=== PATIENT | male | born 1990 | race Caucasian/White ===

== ENCOUNTER 2018-08-22 20:00 | Emergency (ER) | payer SELFPAY ==
[2018-08-22] MEDS ORDERED: IBUPROFEN 600 MG TAB PO ONE (21:11)
[2018-08-22] MEDS ORDERED: HYDROCODONE/APAP 5/325 TAB PO ONE ×2 (21:11→23:04)
[2018-08-22] MEDS ORDERED: HYDROCOD/APAP 5/325 PREPACK#6 BTL TAKEHOME ONE (23:14)
--- NOTE | 2018-08-22 23:14 | EDPHY ---
H & P Stated Complaint: R ankle pain Time Seen by Provider: 08/22/18 20:00 HPI/ROS: Chief complaint: Right ankle injury History of present illness: This is a 28-year-old male who is brought to the emergency department by EMS for right ankle injury. Patient is homeless, walking to the correction when he misstepped and felt multiple pops in crutches in his foot. Since then he has had pain and swelling. He is not able to ambulate well. He denies other direct trauma. He denies open wounds. Denies abnormal coolness or paresthesias. No report of trauma to other parts of the body. - Personal History Current Tetanus Diphtheria and Acellular Pertussis (TDAP): Yes - Medical/Surgical History Hx Asthma: No Hx Chronic Respiratory Disease: No Hx Diabetes: No Hx Cardiac Disease: No Hx Renal Disease: No Hx Cirrhosis: No Hx Alcoholism: No Hx HIV/AIDS: No Hx Splenectomy or Spleen Trauma: No Other PMH: denies - Social History Smoking Status: Never smoked - Physical Exam Exam: General: Alert, nontoxic. Skin: No open wounds to the right lower extremity. Musculoskeletal: Diffuse edema to the right ankle. It is diffusely tender. He has pain trying to move it. He can move the right toes. The lower leg and knee are nontender. Vascular: DP and PT pulses 2+. Neurologic: Sensation intact in the right leg. Constitutional: Initial Vital Signs Temperature (C) 36.6 C 08/22/18 20:21 Heart Rate 74 08/22/18 20:21 Respiratory Rate 16 08/22/18 20:21 Blood Pressure 134/76 H 08/22/18 20:21 O2 Sat (%) 96 08/22/18 20:21 O2 Delivery Mode Room Air Allergies/Adverse Reactions: No Known Allergies Allergy (Unverified 08/22/18 20:21) Home Medications: Medication Instructions Recorded Hydrocodone/APAP 5/325 [[place] 1 tab PO Q6H #6 tab 08/22/18 5/325 (*)] Medical Decision Making - Diagnostics Imaging Results: Imaging Impressions Ankle X-Ray 08/22/18 20:04 Impression: Mildly displaced posterior malleolar fracture of the right ankle. Imaging: I viewed and interpreted images myself ED Course/Re-evaluation: Patient presents to the emergency department with EMS for a right ankle injury. His foot is neurovascularly intact. X-ray confirms a posterior malleolar fracture. Dr. Alva of orthopedics was consulted. He has seen the patient in the emergency room. He recommends a walking boot and crutches and patient can follow up in clinic. Patient is discharged. Referral information is provided. Return precautions discussed. Differential Diagnosis: Included but not limited to contusion, sprain or strain, Achilles tendon rupture , fracture, dislocation - Data Points Medications Given: Discontinued Medications Hydrocodone Bitart/Acetaminophen ([place] 5/325) 1 tab PO EDNOW ONE Stop: 08/22/18 21:12 Last Admin: 08/22/18 21:21 Dose: 1 tab Hydrocodone Bitart/Acetaminophen ([place] 5/325) 1 tab PO EDNOW ONE Stop: 08/22/18 23:05 Last Admin: 08/22/18 23:08 Dose: 1 tab Hydrocodone Bitart/Acetaminophen ([place] 5/325mg Prepack#6) 1 btl TAKEHOME EDNOW ONE Stop: 08/22/18 23:15 Last Admin: 08/22/18 23:27 Dose: 1 btl Ibuprofen (Motrin) 600 mg PO EDNOW ONE Stop: 08/22/18 21:12 Last Admin: 08/22/18 21:21 Dose: 600 mg Departure - Departure Disposition: Home, Routine, Self-Care Clinical Impression: Ankle fracture Qualifiers: Encounter type: initial encounter Fracture type: closed Laterality: right Qualified Code(s): S82.891A - Other fracture of right lower leg, initial encounter for closed fracture Condition: Good Instructions: Hydrocodone/Acetaminophen (By mouth), Ankle Fracture (ED) Additional Instructions: Follow-up with orthopedics this week for recheck In regards to pain control see the following: Use ibuprofen [600] mg [3] times a day for the next 2-3 days for pain In addition You have been prescribed [[place]] for pain. [[place]] contains Tylenol, do not take extra Tylenol/acetaminophen/Apap with it. It is sedating. If symptoms worsen or new symptoms develop return to the emergency room for recheck Referrals: Taran Alva MD [Medical Doctor] - 08/23/18 Prescriptions: Hydrocodone/APAP 5/325 [[place] 5/325 (*)] 1 tab PO Q6H #6 tab
[2018-08-22 23:46] VITALS: BP 143/84
--- NOTE | 2018-08-23 01:45 | GCON ---
I was asked to see the patient via the emergency room. HISTORY OF PRESENT ILLNESS: The patient sustained a fall earlier this evening, resulting in ankle fr acture. PHYSICAL EXAM: He has no gross sensorimotor or vascular deficits. Range of motion is deferred secon davin to pain. However, he does not have any gross deficits at this time. Squeeze test is negative. I reviewed x-rays of the right ankle, which demonstrate a posterior malleolus fracture. It appears to encompass about 15% of the articular surface. There is no evidence of additional fracture or disl ocation of note. The medial and lateral malleoli appear to be grossly intact. IMPRESSION: Right ankle fracture, closed. ASSESSMENT AND PLAN: We will treat the patient in a CAM boot. It is preferable that he is nonweight bearing. However, this is more than likely a stable ankle fracture. Patient has some social issues, and he will probably be walking on this. I think it is safe even knowing that discharging the patie nt with some crutches. I will see him on Thursday in my office, and we will go over further instruc tions at that time. /[id number]/MODL
== END 2018-08-22 23:44 | disposition home or self-care (01) ==
DX: S82.891A Other fracture of right lower leg, initial encounter for closed fracture (principal); X50.9XXA Other and unspecified overexertion or strenuous movements or postures, initial encounter; Y93.01 Activity, walking, marching and hiking; Y92.9 Unspecified place or not applicable; Z59.0 Homelessness
CPT/HCPCS: L4386

== ENCOUNTER 2018-08-25 11:07 | Day surgery (SDC) | payer MEDICAID ==
[2018-08-25] MEDS ORDERED: LR 1,000 ML IV ONE (11:21)
[2018-08-25] MEDS ORDERED: LIDOCAINE 1% 2 ML INJ ID PRN (11:43)
[2018-08-25] MEDS ORDERED: BUPIVACAINE 0.5% 30 ML SDV ONE (12:23)
[2018-08-25] MEDS ORDERED: ceFAZolin 2 GM/DEXTROSE 100 ML IV ONE (13:23)
--- NOTE | 2018-08-25 13:23 | PDGENHP ---
History and Physical History and Physical: CC: R Ankle HPI: 28y/o twist ankle ~ 1 wk ago developed ankle pain SH 1ppd Meds - none NKDA PE Head - normocephalic Neck - supple Chest - CTA Heart - RRR Ext - R ankle swollen tender. Distal NVI A: R post mal fx,syndesmotic disruption P: ORIF R post mal, ORIF syndesmosis
--- NOTE | 2018-08-25 13:25 | POSTOPPROG ---
Post Op Note Date of Operation: 08/25/18 Surgeon: Angel Ruff Anesthesia: GET(General Endotracheal) Pre-op Diagnosis: R post mal fx, syndesmotic disruption, deltoid ligament tear Post-op Diagnosis: same Procedure: ORIF post mal, syndesmosis, deltoid repair Inf/Abcess present in the surg proc area at time of surgery?: No EBL: Minimal
[2018-08-25] MEDS ORDERED: MIDAZOLAM 2 MG/2 ML VIAL IVP ONE (13:30)
--- NOTE | 2018-08-25 13:30 | PDANEPAE ---
ANE Past Medical History - Cardiovascular History Hx Hypertension: No Hx Arrhythmias: No Hx Chest Pain: No Hx Coronary Artery / Peripheral Vascular Disease: No Hx CHF / Valvular Disease: No Hx Palpitations: No - Pulmonary History Hx COPD: No Hx Asthma/Reactive Airway Disease: No Hx Recent Upper Respiratory Infection: No Hx Oxygen in Use at Home: No Hx Sleep Apnea: No Sleep Apnea Screening Result - Last Documented: Negative - Neurologic History Hx Cerebrovascular Accident: No Hx Seizures: No Hx Dementia: No - Endocrine History Hx Diabetes: No - Renal History Hx Renal Disorders: No - Liver History Hx Hepatic Disorders: No - Neurological & Psychiatric Hx Hx Neurological and Psychiatric Disorders: No - Cancer History Hx Cancer: No - Congenital Disorder History Hx Congenital Disorders: No - GI History Hx Gastrointestinal Disorders: No - Other Health History Other Health History: missing teeth - Chronic Pain History Chronic Pain: No - Surgical History Prior Surgeries: denies ANE Review of Systems Review of Systems: - Exercise capacity METS (RN): 5 METS ANE Patient History - Allergies Allergies/Adverse Reactions: No Known Allergies Allergy (Verified 08/25/18 11:53) - NPO status NPO Since - Liquids (Date): 08/24/18 NPO Since - Liquids (Time): 23:59 NPO Since - Solids (Date): 08/25/18 NPO Since - Solids (Time): 06:00 - Smoking Hx Smoking Status: Heavy smoker - Family Anes Hx Family Hx Anesthesia Complications: mom has lots of nausea ANE Labs/Vital Signs - Vital Signs Blood Pressure: 136/89 Heart Rate: 91 Respiratory Rate: 16 O2 Sat (%): 96 Height: 185.42 cm Weight: 72.575 kg ANE Physical Exam - Airway Neck exam: FROM Mallampati Score: Class 2 Mouth exam: normal dental/mouth exam - Pulmonary Pulmonary: no respiratory distress - Cardiovascular Cardiovascular: regular rate and rhythym - ASA Status ASA Status: II ANE Anesthesia Plan Anesthesia Plan: GA w LMA
[2018-08-25] MEDS ORDERED: METOCLOPRAMIDE 10 MG/2 ML VIAL ONE (13:35)
[2018-08-25] MEDS ORDERED: PROPOFOL 200 MG/20 ML VIAL ONE (13:35)
[2018-08-25] MEDS ORDERED: fentaNYL 250 MCG/5 ML INJ ONE (13:35)
[2018-08-25] MEDS ORDERED: DEXAMETHASONE 4 MG/ML VIAL ONE ×2 (13:35)
[2018-08-25] MEDS ORDERED: KETOROLAC 30 MG/1 ML SDV ONE (13:36)
[2018-08-25] MEDS ORDERED: LIDOCAINE 2% 100 MG/5 ML SYR ONE (13:36)
[2018-08-25] MEDS ORDERED: BUPIVACAINE/EPI 0.5% 30 ML SDV ONE (14:23)
[2018-08-25] MEDS ORDERED: HYDROCODONE/APAP 5/325 TAB PO PRN (15:32)
[2018-08-25] MEDS ORDERED: NALOXONE HCL 0.4 MG/ML INJ IVP PRN (15:32)
[2018-08-25] MEDS ORDERED: ACETAMINOPHEN 500 MG TAB PO PRN (15:32)
[2018-08-25] MEDS ORDERED: ALBUTEROL 3 ML DEYVIAL IH PRN (15:32)
[2018-08-25] MEDS ORDERED: fentaNYL 100 MCG/2 ML INJ IVP PRN (15:32)
[2018-08-25] MEDS ORDERED: ONDANSETRON 4 MG/2 ML VIAL IVP PRN (15:32)
--- NOTE | 2018-08-25 15:34 | POSTANESTH ---
Post Anesthetic Evaluation Cardiovascular Status: Similar to Pre-Op Cond Respiratory Status: Similar to Pre-op Cond. Level of Consciousness/Mental Status: Alert and Oriented Pain Control: Adequate, Prn Tx Ordered Nausea/Vomiting Control: Adequate, Prn Tx Ordered Complications Possibly Related to Anesthesia: None Noted
[2018-08-25 15:57] VITALS: BP 139/82
--- NOTE | 2018-08-25 19:18 | GOP ---
DATE OF OPERATION: 08/25/2018 SURGEON: Angel Ruff MD ANESTHESIA: General plus popliteal and saphenous nerve blocks performed by the anesthesiologist at y request for postoperative pain management. PREOPERATIVE DIAGNOSIS: 1. Right posterior malleolus fracture. 2. Right syndesmotic disruption. 3. Right deltoid ligament disruption. POSTOPERATIVE DIAGNOSIS: 1. Right posterior malleolus fracture. 2. Right syndesmotic disruption. 3. Right deltoid ligament disruption. PROCEDURE PERFORMED: 1. Open reduction and internal fixation, right syndesmotic disruption. 2. Open reduction and internal fixation, right posterior malleolar fracture. 3. Open repair, right deltoid ligament. 4. Intraoperative use of fluoroscopy. FINDINGS: ESTIMATED BLOOD LOSS: Minimal. INDICATIONS: The patient is a 28-year-old, who approximately 1 week prior, sustained a fall resultin g in an ankle fracture disruption. Based on the unstable nature of his injury, he is recommended for operative treatment consisting of open reduction and internal fixation. The patient acknowledged he understood the potential risks of the operation, including but not limited to bleeding, infection, n eurovascular damage, limb loss, limited level of function, malunion, nonunion, need for hardware lona isabel, pain or functional limitations despite operative treatment and the anesthetic risks. He acknowl edged he understood the potential risks, planned procedure, and postoperative plan well, and had all questions answered prior to surgery. He gave consent for the operative procedure. DESCRIPTION OF PROCEDURE: The patient was brought into the operating after IV antibiotics were admin istered. He was placed in supine position. General anesthetic was administered. Tourniquet was jose kevin on his right thigh. The patient was transferred to a left-lateral decubitus position on the oper ating table with beanbag support, axillary roll, and padding of all bony prominences. The right lowe r extremity was prepped and draped in standard sterile fashion. After marking the incision and Akbar w rap exsanguination, the tourniquet was inflated to 250. A longitudinal incision was made along the p osterior border of the distal fibula. Skin and subcutaneous tissue were sharply incised. Sharp diss ection was carried initially in the interval between the peroneal and flexor hallucis longus tendons. Dissection was carried down to the posterolateral aspect of the distal tibia. The posterior distal tib-fib ligaments were left intact. After utilizing a K-wire to provisionally reduce the posterior malleolar fracture, a 2.7 mm cortical screw was placed in a [id number]-yu-rprlteyi direction in lag fa shion across the fracture site. Fluoroscopic views confirmed favorable reduction and hardware placem ent. Through the same incision, attention was directed toward syndesmoses. Dissection was carried anterio r to the peroneal tendon, exposing the lateral aspect of the distal fibula. A 2-hole, 1/[address] was cut smooth at the edges. A 2.7 mm bicortical screw was placed through the plate in the proxi mal hole. Just proximal to the syndesmosis a tightrope was then placed parallel along the tibial jose fond just above the syndesmosis through the more distal hole in the plate. Tight rope was secured, w ith the ankle in a neutral dorsiflexed position. Fluoroscopic views confirmed favorable position. T he deep fascia was closed with 2-0 Vicryl suture in interrupted fashion. The subcutaneous tissue was closed with 3-0 Vicryl suture in an interrupted fashion. The skin was closed with 3-0 nylon interru pted sutures. The beanbag was deflated and the patient transferred into a supine position. Attention was directed toward the deltoid ligament. An oblique incision was made along the anterior and medial aspect of the distal tibia. Skin and subcutaneous tissue were sharply incised. The super ficial and deep deltoid ligaments were noted to be disrupted. Infolded deltoid was removed from the medial gutter. A Panalok suture anchor was placed at the deltoid insertion of the medial malleolus. The suture ends were then pulled through the deltoid ligament and secured. Subcutaneous tissue was closed with 3-0 Vicryl suture in an interrupted fashion. The skin was closed with 4-0 nylon interrup justo sutures. 0.5% Marcaine without epinephrine was injected in the wound sites. The wounds were carlota ssed with sterile Adaptic, 4 x 4, and Webril; and the leg was placed in a below-knee splint. The pat ient tolerated the procedure well, was taken to the recovery room, extubated and in stable condition postoperatively. All sponge, needle, and instrument counts reported to be correct. DRAINS: None. COMPLICATIONS: None. PLAN: The patient be discharged home nonweightbearing on his operative extremity. Popliteal sapheno us nerve blocks were performed in the recovery room by the anesthesiologist at my request for postope rative pain management. /[id number]/MODL
== END 2018-08-25 17:35 | disposition home or self-care (01) ==
LOC: FSGY 11:07
PROVIDERS: ATTEND Orthopaedic Surgery Foot and Ankle Surgery
PROC: 0QSG04Z Reposition Right Tibia with Internal Fixation Device, Open Approach (ICD-10-PCS; principal; 2018-08-25 13:30)
DX: S82.891A Other fracture of right lower leg, initial encounter for closed fracture (principal); X50.9XXA Other and unspecified overexertion or strenuous movements or postures, initial encounter; Z59.0 Homelessness
CPT/HCPCS: C1713; J0690; J1100; J1885; J2001; J2250; J2704; J2765; J3010

== ENCOUNTER 2018-09-01 00:07 | Emergency (ER) | payer MEDICAID ==
--- NOTE | 2018-09-01 01:06 | EDPHY ---
[facility] & P [facility] R foot sx last week Time Seen by Provider: 09/01/18 00:22 HPI/ROS: Chief Complaint: Right ankle pain HPI: 28-year-old male complaining of right ankle pain. He had surgery for a malleolar fracture a week ago by Dr. Ruff. He is scheduled to see him tomorrow. Patient states that he slipped and fell on his crutches and injured his right ankle again tonight. No other injuries. ROS: 10 systems were reviewed and were negative except those elements noted in the HPI. Social History: Positive smoking, currently homeless Family History: non-contributory Physical Exam: General: Awake, alert, no acute distress Right ankle: splinting is in place. Incision sites are intact, no erythema, no significant deformity. 2+ dorsalis pedis pulses. Capillary refills less than 2 sec. - Personal History Current Tetanus/Diphtheria Vaccine: Yes Current Tetanus Diphtheria and Acellular Pertussis (TDAP): Yes - Medical/Surgical History Hx Asthma: No Hx Chronic Respiratory Disease: No Hx Diabetes: No Hx Cardiac Disease: No Hx Renal Disease: No Hx Cirrhosis: No Hx Alcoholism: No Hx HIV/AIDS: No Hx Splenectomy or Spleen Trauma: No Other PMH: R ankle sx - Social History Smoking Status: Heavy smoker Constitutional: Initial Vital Signs Temperature (C) 36.8 C 09/01/18 00:10 Heart Rate 103 H 09/01/18 00:10 Respiratory Rate 20 09/01/18 00:10 Blood Pressure 129/78 H 09/01/18 00:10 O2 Sat (%) 96 09/01/18 00:10 O2 Delivery Mode Room Air Allergies/Adverse Reactions: No Known Allergies Allergy (Verified 09/01/18 00:09) Home Medications: Medication Instructions Recorded NK [No Known Home Meds] 09/01/18 Medical Decision Making - Diagnostics Imaging Results: No obvious disruption or changes on his x-ray. Per my interpretation. Imaging: I viewed and interpreted images myself ED Course/Re-evaluation: 28-year-old male with ankle pain status post fall and recent surgery. No obvious abnormalities on his x-ray. He has an appointment with orthopedics tomorrow. Will discharge with follow-up as scheduled. Departure - Departure Disposition: Home, Routine, Self-Care Clinical Impression: Ankle pain Condition: Good Instructions: Ankle Fracture (ED) Additional Instructions: Follow up with your orthopedist tomorrow as scheduled. Referrals: Angel Ruff MD [Medical Doctor] - As per Instructions
[2018-09-01 01:51] VITALS: BP 129/76
== END 2018-09-01 01:51 | disposition home or self-care (01) ==
LOC: EDUNIT#
DX: M25.571 Pain in right ankle and joints of right foot (principal); S82.891D Other fracture of right lower leg, subsequent encounter for closed fracture with routine healing; W01.198A Fall on same level from slipping, tripping and stumbling with subsequent striking against other object, initial encounter; F17.200 Nicotine dependence, unspecified, uncomplicated; Z59.0 Homelessness

== ENCOUNTER 2018-10-03 14:51 | Inpatient (IN) | payer MEDICAID ==
--- NOTE | 2018-10-03 15:18 | EDPHY ---
H & P Time Seen by Provider: 10/03/18 15:00 HPI/ROS: CHIEF COMPLAINT: Hand numbness HISTORY OF PRESENT ILLNESS: The patient is a 28-year-old male who presents emergency department with bilateral hand numbness. Patient fractured his right ankle when slipping on the ice on 08/21/2018. This required surgical repair. Since that time he has been using crutches. He is homeless. Over the past week he has had increasing bilateral hand weakness. This is primarily difficulty with extension of his hands. He states he is unable to hold a cup with 1 hand due to the weakness and numbness. He reports tingling"all over my hands." Patient has discomfort on the medial aspect of both upper arms. The patient states that he did not strike his head or lose consciousness when he fell. Had no headaches. He has no neck or back pain. Patient has had no lower extremity weakness or numbness. Patient denies incontinence. REVIEW OF SYSTEMS: 10 systems were reveiwed and are negative with the exception of the elements mentioned in the history of present illness. Past Medical/Surgical History: Includes ankle fracture Past surgical history: Ankle surgery Social history: The patient is homeless. The patient smokes. He reports using alcohol regularly. Smoking Status: Heavy smoker Physical Exam: Vitals noted GENERAL: No acute distress, alert. HEENT: Eyes normal to inspection, normal pharynx, no signs of dehydration. NECK: Normal, supple. No spinal tenderness. RESPIRATORY: Clear to auscultation bilaterally, no rales, rhonchi or wheezing. CVS: Regular rate and rhythm, no rubs, murmurs, or gallops. ABDOMEN: Soft, nontender, nondistended, no organomegaly. BACK: Normal to inspection, no CVA tenderness. No spinal tenderness. SKIN: Normal color, no rash, warm, dry. No pallor. EXTREMITIES: Patient's upper extremities appear atraumatic. However, it is noted that he has not extending his wrist during my exam. Patient has brisk radial and ulnar pulses bilaterally. There is brisk capillary refill bilaterally. Patient has no palpable cords in his arms bilaterally. No swelling. Mild tenderness palpation is bilateral medial arm. Please refer to neuro exam. No pedal edema, no calf tenderness, no Homans sign or cords, no joint swelling. NEURO/PSYCH: Alert and oriented, mildly intoxicated appearing. The patient has an abnormal known motor exam. Patient is unable to extend his wrist bilaterally. Patient also has difficulty with finger extension. Patient has slightly decreased drafter directional survey strength. Patient has good strength at his shoulder. Patient has gross sensation intact in his hand and upper extremities but states that feels"tingling." Normal motor sensory exam the lower extremities. No obvious cranial nerve deficit. Constitutional: Initial Vital Signs Temperature (C) 36.9 C 10/03/18 14:58 Heart Rate 91 10/03/18 14:58 Respiratory Rate 16 10/03/18 14:58 Blood Pressure 121/70 H 10/03/18 14:58 O2 Sat (%) 98 10/03/18 14:58 O2 Delivery Mode Room Air Allergies/Adverse Reactions: No Known Allergies Allergy (Verified 09/01/18 00:09) Home Medications: Medication Instructions Recorded NK [No Known Home Meds] 09/01/18 Medical Decision Making ED Course/Re-evaluation: In the emergency department I discussed possible etiologies with the patient. I answered all his questions. Due to his focal deficit laboratory studies were obtained. Differential Diagnosis: My differential includes but is not limited to bilateral radial nerve palsy, brachial plexus injury, spinal injury, ischemic CVA, hemorrhagic CVA, subdural hematoma, epidural hematoma, electrolyte abnormality, sugar abnormality, demyelinating disease, Guillain-Friedheim, MS. The patient has been using crutches. The crutches could have placed pressure on his radial nerves bilaterally causing a neurapraxia. Departure - Departure Disposition: [facility] Inpatient Acute Clinical Impression: Bilateral arm weakness Condition: Good Referrals: NONE *PRIMARY CARE P,. [Primary Care Provider] - As per Instructions
[2018-10-03] MEDS ORDERED: NS 1,000 ML IV ONE (15:21)
[2018-10-03 15:54] LABS: PLATELET COUNT 224 10^3/uL (150-400)
[2018-10-03 16:04] LABS: INR 0.97 (0.83-1.16); PROTIME(PATIENT) 13.1 SEC (12.0-15.0)
[2018-10-03] MEDS ORDERED: ZOLPIDEM TARTRATE 5 MG TAB PO PRN (16:44)
[2018-10-03] MEDS ORDERED: ONDANSETRON 4 MG/2 ML VIAL IVP PRN (16:44)
[2018-10-03] MEDS ORDERED: GADOBUTROL 10 ML VIAL IVP ONE (17:33)
--- NOTE | 2018-10-03 17:52 | PDGENHP ---
History and Physical History and Physical: CC: Weakness in both hands HISTORY: This patient comes into the ER today complaining of 2 days or thereabouts of progressive weakness and tingling and numbness in both hands. There is pain and the tingling and pain come from both shoulders down into both hands without being into any nerve root distribution. He is having trouble holding on to things. He recalls no specific injury to arms or hands but he does fall at times. Notably the patient is homeless and does drink alcohol though he says not every day. He is using crutches at this time and is nonweightbearing on his right foot because of a recent ankle injury for which she had surgery here in August and he is wearing a boot on his right foot. This was a posterior malleolar fracture and syndesmotic abnormality. He also admits that 3 or 4 days ago he had about 12 hr of frequent vomiting without abdominal pain and he was thinking this may be infectious. Since then he has been able to eat and drink. He does not have weakness numbness tingling or pain anywhere besides his upper extremities and right foot and ankle. No fever. ROS: A comprehensive 10 system review revealed no other significant findings PAST MEDICAL HISTORY: Homelessness Alcohol abuse which he says is intermittent FAMILY MEDICAL HISTORY: A strange did not aware of any particular medical issues in relatives SOCIAL HISTORY: Homelessness Alcohol abuse which he says is intermittent Denies use of street drugs, occasional marijuana MEDICATIONS: The patients list has been reconciled by our clinical pharmacist in the EMR. I have reviewed the list and ordered appropriate medicines. PHYSICAL EXAMINATION: Vital Signs: Stable vital signs without fever Metal Dresser: Sinus Examination: General: alert, oriented, good mentation, relaxed Skin: warm, dry, good color, no rash HEENT: normal Neck: no mass or jvd Resps: relaxed Lungs: clear breath sounds Heart: regular, no murmur Abdomen: soft, nondistended, nontender, +BS, no mass Upper Extremities: normal Lower Extremities: no edema, warm No Bleeding or bruising Neurologic: normal speech/language, normal commercial drone pilot, no focal weakness IV site: looks normal LABORATORY DATA: Alcohol level 193 Unremarkable CBC, metabolic panel, coag studies RADIOLOGY STUDIES: CT scan of the cervical spine is done and I reviewed the images with Dr. Saeed Shaw. There is some disc bulge at C3-4 and C5-6. There is possibly some mild anterior compression at T1, but no other fracture or evidence of injury at this time There is also CT scan of head which is unremarkable I have ordered an MRI of the cervical spine in this study is currently pending ASSESSMENT: * Bilateral upper extremity paresthesias and pain with remarkable weakness in both hands * Recent ankle fracture currently wearing right ankle boot and using crutches with nonweightbearing * Alcohol abuse * Recent episode of vomiting, uncertain etiology, question viral Differential diagnosis here could include peripheral nerve injury from being on crutches and drinking (not directly supported anatomically by my examination), cord issues such as injury or transverse myelopathy, or Guillain-Middleton syndrome variant PLANS: * Requires inpatient admission because he is nonweightbearing on right foot and unable to use his hands for crutches, so until we have this resolved will not be some safely ambulating, as well as needing further diagnostic workup and possible treatment for his neurologic presentation * MRI of the cervical spine to look for any etiology there, treat as indicated if anything found * If MRI is unremarkable will need neurology consultation to look at possibility of Guillain-Middleton variant verses peripheral nerve injuries; will order lumbar puncture to begin evaluation in this case * Physical occupational therapies * Ongoing nonweightbearing in his right lower extremity until Orthopedics can evaluate (Dr. Ruff was the surgeon) * I have ordered repeat x-ray of his right ankle for ortho evaluation * The patient does not feel he needs any alcohol here nor does he feel he is at risk for alcohol withdrawal but will watch for this closely; does state that he wants to quit drinking and that he has only been drinking to try and manage the pain of his ankle, so will not order alcohol here * Daily thiamin I have reviewed the patient's case in detail with Dr. Dr. Saeed Shaw, Dr. Aleida Ash I have reviewed the patient's past medical records as part of this assessment, including previous hospital admission records
[2018-10-03] MEDS: ACETAMINOPHEN 325 MG TAB PO PRN (21:26)
[2018-10-03] MEDS: MELATONIN 3 MG TAB PO SCH (21:26)
[2018-10-03] MEDS ORDERED: KETOROLAC 15 MG/1 ML SDV IVP ONE (22:57)
--- NOTE | 2018-10-04 00:06 | PDMN ---
Medical Necessity Medical necessity: Pt meets IP criteria as of 10/03/2018 per and MIKEY MG-N ( Neurology); est los > 2mn for ongoing tx and management of bilateral parasthesias and pain with remarkable weakness in both hands, as well as ankle fracture and ETOH abuse; requiring further workup, neurology consult, possible orthopedic consult, and PT/OT; Comorbid homelessness.
--- NOTE | 2018-10-04 10:21 | HOSPPROG ---
Hospitalist Progress Note Assessment/Plan: Oliverio is a 28 y/o male who presented to the ER w progressive weakness and tingling, numbness in both hands. First encounter, chart reviewed. Discussed his care w Dr Diaz. *progressive weakness, notably in the upper extremities -reviewed w Dr Diaz, patient has his reflexes so unlikely Guillain [place] -to get a brain MRI today to r/o anything acute -likely some type of brachial issue using his crutches *alcohol use -high BAL on admission *recent ankle injury -is to be non weight bearing *recent bout of nausea and vomiting -none further *homelessness -CM reserving bed at longterm *Plan: reviewed his care w PT, looking at getting him a walker. If brain MRI is stable; will dc. Subjective: Oliverio said his hands still feel weak. Objective: Vital Signs Temp Pulse Resp BP Pulse Ox 36.2 C 78 16 145/93 H 98 10/04/18 08:00 10/04/18 08:00 10/04/18 08:00 10/04/18 08:00 10/04/18 08:00 Laboratory Results 10/04/18 04:22 10/03/18 10/04/18 10/05/18 05:59 05:59 05:59 Intake Total 1500 Output Total 925 Balance 575 PT 13.1 SEC (12.0-15.0) 10/03/18 15:45 INR 0.97 (0.83-1.16) 10/03/18 15:45 - Physical Exam Constitutional: uncomfortable Eyes: PERRL Ears, Nose, Mouth, Throat: hearing normal Cardiovascular: regular rate and rhythym Respiratory: no respiratory distress Skin: warm Musculoskeletal: generalized weakness Neurologic: AAOx3 Psychiatric: interacting appropriately ICD10 Worksheet Patient Problems: Problems Problem Status Onset Bilateral arm weakness Acute
--- NOTE | 2018-10-04 12:24 | ASMTCASEMG ---
Living Arrangements What is your living Answers: Alone arrangement? Who do you live with? Type Of Residence What kind of residence do Answers: Homeless you live in? Discharge Plan Comments Coordination Status Comments Notes: Patient is a 28yo single homeless male who was admitted for hand weakness and numbness, recent ankle surgery, and inability to use his crutches due to neurologic issues with his hands. Patient was provided with a wheelchair and winter clothing today. We are awaiting [facility] return call to see if we can get him a bed for the night. CM will follow. Date Signed: 10/04/2018 12:23 PM Electronically Signed By:Hiwot Villela LCSW
--- NOTE | 2018-10-04 13:04 | NEUROPROG ---
Assessment: [id number] - Neurology Consult: - CC: Dr. Franklin consulted neurology for bilateral hand weakness - HPI: Pt presented to [facility] ER on 10/03/18 complaining of 2 days of progressive hand weakness, pain, and tingling bilaterally. He did injure his right ankle in August 2018 and required surgery. He has been using crutches since that time. On ER labs he had an elevated alcohol level (pt reported he was homeless as well and uses frequent alcohol). Head CT showed no acute changes and cervical MRI wwo showed only mild degen changes unlikely to be causing his symptoms. He has been using crutches and is non-weight bearing on his right foot due to a recent surgery in August 2018 due to a posterior malleolar fracture and syndesmotic abnl. I saw the patient on 10/04/18. His neurologic exam showed a right foot pain and bilateral distal hand weakness. 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 Likely his frequent alcohol use makes his nerves more vulnerable to compression. I recommend alcohol cessation and working with PT/OT to determine any rehab needs and adjustment of crutches to address this issue. I will get a brain MRI wo to exclude stroke causing symptoms. - PMHx: recent right foot fracture with surgery in August 2018, frequent alcohol use, - SHx: homeless FHx: NC - ROS: Pt denied acute fever, total vision loss, active severe chest pain, respiratory failure, total body severe rash, total bowel/bladder incontinence, psychosis, active seizures, or active bleeding - O: VS reviewed General: Alert Eyes: Fundoscopic exam not able to visualize optic disks CV: Heart RRR, no murmur, no carotid bruit Lungs: Clear to auscultation bilaterally, no rhonchi or rales Neuro: - Mental: . Oriented x person/place/date . concentration appears normal . speech fluency/comprehension normal . memory appears normal . fund of knowledge appear intact - Cranial Nerves: . II: PERRL, VFFTC . III/IV/: EOMI, no nystagmus, normal smooth pursuits, no Ptosis . V: facial sensation intact to LT . VII: face symmetric to eye closure and smile . VIII: hearing intact to conversation . IX/X: uvula raises symmetrically . XI: SCM 5/5 B/L strength . XII: tongue protrudes midline w/nl strength - Motor: . Tone: normal tone in all 4 extremity . Strength: bilateral distal arm weakness - Reflexes: B/L bic/BR/patella 2/4 - Sensory: all 4 extremity intact to light touch but pt feels reduced sensation in bilateral hands - Coord: no coordination issues noted - Gait: deferred - Labs: 10/03/18- CBC wnl, Coags wnl, Chem CO2 21L, Ethyl Alcohol 193H - Rads: 10/03/18- Head CT: No acute fracture or evidence of acute intracranial injury ( I personally visualized the images on 10/03/18) 10/03/18- Cervical MRI wwo: Somewhat less than optimal study due to patient motion. Mild degenerative disk disease between C4 and C6. No source for bilateral arm weakness identified. - Assessment: 1. Bilateral hand weakness: His neurologic exam on 10/04/18 showed bilateral distal hand weakness and reduced sensation. Cervical MRI wwo on 10/03/18 showed only mild degen changes that does not seem to be the cause of his hand weakness. 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 Likely his frequent alcohol use makes his nerves more vulnerable to compression. I recommend alcohol cessation and working with PT/OT to determine any rehab needs and adjustment of crutches to address this issue. I will get a brain MRI wo to exclude stroke causing symptoms. - 2. Frequent Alcohol use 3. Homeless 4. Right ankle fracture with surgery in August 2018, pt using crutches - Plan: - Brain MRI WWO - PT/OT to assess any rehab needs - Recommend alcohol cessation Objective: Vital Signs Temp Pulse Resp BP Pulse Ox 36.2 C 78 16 145/93 H 98 10/04/18 08:00 10/04/18 08:00 10/04/18 08:00 10/04/18 08:00 10/04/18 08:00 Laboratory Results 10/04/18 04:22 10/03/18 10/04/18 10/05/18 05:59 05:59 05:59 Intake Total 1500 300 Output Total 925 Balance 575 300 PT 13.1 SEC (12.0-15.0) 10/03/18 15:45 INR 0.97 (0.83-1.16) 10/03/18 15:45 Allergies/Adverse Reactions: No Known Allergies Allergy (Verified 09/01/18 00:09)
--- NOTE | 2018-10-04 15:22 | ASMTCMCOM ---
CM Note CM Note Notes: [facility] cannot provide a bed for the patient tonight. [facility] CM will follow. Date Signed: 10/04/2018 03:21 PM Electronically Signed By:Hiwot Villela LCSW
[2018-10-04] MEDS: MELATONIN 3 MG TAB PO SCH (20:52)
[2018-10-04] MEDS: KETOROLAC 15 MG/1 ML SDV IVP PRN (21:32)
[2018-10-05 08:11] VITALS: BP 139/107
[2018-10-05] MEDS: ACETAMINOPHEN 325 MG TAB PO PRN (11:20)
[2018-10-05] MEDS: KETOROLAC 15 MG/1 ML SDV IVP PRN ×2 (11:21→11:29)
--- NOTE | 2018-10-05 12:22 | NEUROPROG ---
Assessment: [id number] - Neurology Consult: - CC: F/U for bilateral hand weakness - Narrative Summary: Pt presented to [facility] ER on 10/03/18 complaining of 2 days of progressive hand weakness, pain, and tingling bilaterally. He did injure his right ankle in August 2018 and required surgery. He has been using crutches since that time. On ER labs he had an elevated alcohol level (pt reported he was homeless as well and uses frequent alcohol). Head CT showed no acute changes and cervical MRI wwo showed only mild degen changes unlikely to be causing his symptoms. He has been using crutches and is non-weight bearing on his right foot due to a recent surgery in August 2018 due to a posterior malleolar fracture and syndesmotic abnl. I saw the patient on 10/04/18. His neurologic exam showed a reduced sensation in his arms and bilateral distal hand weakness. 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 Likely his frequent alcohol use makes his nerves more vulnerable to compression. I recommend alcohol cessation and working with PT/OT to determine any rehab needs and adjustment of crutches to address this issue. I will get a brain MRI wo to exclude stroke causing symptoms. - HPI: F/U 10/05/18. Brain MRI wo showed no stroke or other finding to explain the hand weakness. Plan will be to undergo PT/OT recs to adjust crutches and attempt alcohol cessation. Pt to f/u in neurology clinic in 1-5 weeks if symptoms do not resolve. - PMHx: recent right foot fracture with surgery in August 2018, frequent alcohol use - SHx: homeless FHx: NC - ROS: Pt denied acute fever, total vision loss, active severe chest pain, respiratory failure, total body severe rash, total bowel/bladder incontinence, psychosis, active seizures, or active bleeding - Labs: 10/03/18- CBC wnl, Coags wnl, Chem CO2 21L, Ethyl Alcohol 193H - Rads: 10/03/18- Head CT: No acute fracture or evidence of acute intracranial injury 10/03/18- Cervical MRI wwo: Somewhat less than optimal study due to patient motion. Mild degenerative disk disease between C4 and C6. No source for bilateral arm weakness identified. 10/04/18- Brain MRI wo: No evidence for acute intracranial abnormality. No evidence for acute infarct. 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 Mild nonspecific fluid in the mastoid air cells. - Assessment: 1. Bilateral hand weakness: His neurologic exam on 10/04/18 showed bilateral distal hand weakness and reduced sensation. Cervical MRI wwo on 10/03/18 showed only mild degen changes that does not seem to be the cause of his hand weakness and brain MRI wo on 10/04/18 showed no cause (showed benign appearing pineal cyst). 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 Likely his frequent alcohol use makes his nerves more vulnerable to compression. I recommend alcohol cessation and working with PT/OT to determine any rehab needs and adjustment of crutches to address this issue. - 2. Frequent Alcohol use 3. Homeless 4. Right ankle fracture with surgery in August 2018, pt using crutches - Plan: - PT/OT to assess any rehab needs - Recommend alcohol cessation - No further neurologic w/u needed inpatient, pt can f/u with neurology 1-5 weeks after hospital discharge if symptoms persist - 35 min spent with patient, majority of time spent counseling on symptoms and treatment plan. Objective: Vital Signs Temp Pulse Resp BP Pulse Ox 36.8 C 88 14 139/107 H 96 10/05/18 08:00 10/05/18 08:00 10/05/18 08:00 10/05/18 08:00 10/05/18 08:00 Laboratory Results 10/04/18 04:22 10/04/18 10/05/18 10/06/18 05:59 05:59 05:59 Intake Total 1500 1600 Output Total 925 Balance 575 1600 PT 13.1 SEC (12.0-15.0) 10/03/18 15:45 INR 0.97 (0.83-1.16) 10/03/18 15:45 Allergies/Adverse Reactions: No Known Allergies Allergy (Verified 09/01/18 00:09)
--- NOTE | 2018-10-05 14:50 | ASMTLACE ---
LACE Length of stay for Answers: 3 days current admission Acuity / Level of Answers: Yes Care: Did the patient have an inpatient admission? # of Emergency department Answers: 3-4 visits in the last 6 months Social determinants Answers: History of substance abuse (ETOH, street drugs, prescription drugs, etc.) Homelessness (street, assisted) Score: 15 Date Signed: 10/05/2018 02:50 PM Electronically Signed By:RAFAEL Arias
--- NOTE | 2018-10-05 14:57 | ASMTCMCOM ---
CM Note CM Note Notes: Pt medically stable for d/c to [facility] tonight is at [facility]. [facility] Medicaid transport arranged for [id number]. Date Signed: 10/05/2018 02:56 PM Electronically Signed By:RAFAEL Arias
--- NOTE | 2018-10-05 18:25 | HOSPPROG ---
Hospitalist Progress Note Assessment/Plan: Oliverio House is a 28 year old male with etoh dependence who was admitted with bilateral progressive hand numbness and weakness. *progressive weakness, notably in the upper extremities- patient underwent MRI which I reviewed and is normal with no findings to explain the etiology of his symptoms. Neurology has seen and feels that his weakness is likely secondary to using crutches. No further workup necessary per neuro. *alcohol use -high BAL on admission *recent ankle injury -is to be non weight bearing *recent bout of nausea and vomiting -none further *homelessness - reserving bed at half-way *Plan: cleared for DC today Subjective: weakness somewhat improved today. no pain or other complaints. Objective: Vital Signs Temp Pulse Resp BP Pulse Ox 36.8 C 88 14 139/107 H 96 10/05/18 08:00 10/05/18 08:00 10/05/18 08:00 10/05/18 08:00 10/05/18 08:00 Laboratory Results 10/04/18 04:22 10/04/18 10/05/18 10/06/18 05:59 05:59 05:59 Intake Total 1500 1600 Output Total 925 Balance 575 1600 PT 13.1 SEC (12.0-15.0) 10/03/18 15:45 INR 0.97 (0.83-1.16) 10/03/18 15:45 - Physical Exam Constitutional: no apparent distress, appears nourished, not in pain Eyes: PERRL, anicteric sclera, EOMI Ears, Nose, Mouth, Throat: moist mucous membranes, hearing normal, ears appear normal, no oral mucosal ulcers Cardiovascular: regular rate and rhythym, no murmur, rub, or gallop Respiratory: no respiratory distress, no rales or rhonchi, clear to auscultation Gastrointestinal: normoactive bowel sounds, soft, non-tender abdomen, no palpable masses Genitourinary: no bladder fullness, no bladder tenderness, no renal bruits Skin: no rashes or abrasions, no fluctuance, no induration Musculoskeletal: full muscle strength, no muscle tenderness, normal joint ROM Neurologic: AAOx3, sensation intact bilaterally Psychiatric: interacting appropriately, not anxious, not encephalopathic, thought process linear Lymph, Heme, Immunologic: no cervical LAD, no supraclavicular LAD ICD10 Worksheet Patient Problems: Problems Problem Status Onset Bilateral arm weakness Acute
--- NOTE | 2018-10-05 18:28 | PDDCSUM ---
Discharge Summary Discharge Summary: Oliverio House is a 28 year old male with heavyt alcohol use and a ankle sprain about 2months ago who was admitted with progressive bilateral hand numbness and weakness. He underwent a C spine CT which was normal, and a brain MRI which revealed only a pineal cyst. Neurology was consulted to evaluate for his symptoms. Neurology felt that his symptoms were due to a compressive neuropathy from using his crutches. They recommended stopping using the crutches and stopping drinking. patient was discharged in good condition with a wheelchair and told to stop drinking. 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
== END 2018-10-05 15:29 | disposition home or self-care (01) | DRG 48 ==
LOC: EDUNIT# → F3N 18:18
PROVIDERS: ADMIT Internal Medicine; ATTEND Internal Medicine
DX: G56.83 Other specified mononeuropathies of bilateral upper limbs (principal); F10.220 Alcohol dependence with intoxication, uncomplicated; Y90.6 Blood alcohol level of 120-199 mg/100 ml; S82.891D Other fracture of right lower leg, subsequent encounter for closed fracture with routine healing; W01.198D Fall on same level from slipping, tripping and stumbling with subsequent striking against other object, subsequent encounter; F17.210 Nicotine dependence, cigarettes, uncomplicated; Z59.0 Homelessness
CPT/HCPCS: 97162-GP; 97165-GO; 97535-GO; A9585; G0480; J1885